=== PATIENT | female | born 1975 | race Caucasian/White ===

== ENCOUNTER 2018-10-19 19:05 | Emergency (ER) | payer OTHER ==
[2018-10-19 19:28] VITALS: TEMP 98.3; BMI 46.3
--- NOTE | 2018-10-19 19:44 | PDOC ---
History of Present Illness - General Chief Complaint: Pain Stated Complaint: PAIN AFTER DIALYSIS History Source: Patient - History of Present Illness Initial Comments: 10/19/18 19:45 The patient is a 42 year old female with a PMH of ESRD (on HD ) and HTN who was BIBA from HD with a one week h/o back pain. Pain is "aching" constant, localized to her lower back worse with ambulating or movement. No associated numbness/tingling, bowel or bladder incontinence. No known h/o trauma. No previous h/o similar pain. Patient completed entire HD session today. States she is currently being evaluated by her PMD for a thyroid issue and has been taking Motrin for her pain. Allergy: Tylenol (rash), Vancomycin Surgical: A-V Fistula PMD: Dr. Camejo Soil Surveyor: Dr. Hernandez Past History - Past Medical History Allergies/Adverse Reactions: Allergies Allergy/AdvReac Type Severity Reaction Status Date / Time vancomycin Allergy Rash Verified 10/19/18 19:26 Home Medications: Ambulatory Orders Enalapril Maleate [Vasotec -] 10 mg PO DAILY 10/19/18 Sevelamer HCl [Renagel] 800 mg PO TID 10/19/18 Lidocaine 5% Patch [Lidoderm -] 1 patch TP DAILY PRN #7 patch 10/20/18 COPD: No Dialysis: Yes () HTN: Yes - Suicide/Smoking/Psychosocial Hx Smoking History: Never smoked Hx Alcohol Use: No Drug/Substance Use Hx: No Substance Use Type: None Review of Systems - Review of Systems Constitutional: No: Chills, Fever Respiratory: No: Cough, Shortness of Breath Cardiac (ROS): No: Chest Pain, Lightheadedness, Palpitations, Syncope ABD/GI: No: Constipated, Diarrhea, Nausea, Vomiting, Abdominal cramping : No: Burning, Dysuria, Flank Pain, Incontinence Musculoskeletal: Yes: Back Pain Neurological: No: Headache, Numbness, Tingling, Ataxia, Dizziness *Physical Exam - Vital Signs Last Vital Signs Temp Pulse Resp BP Pulse Ox 98.3 F 83 18 137/90 100 10/19/18 19:25 10/19/18 19:25 10/19/18 19:25 10/19/18 19:25 10/19/18 19:25 - Physical Exam General Appearance: Yes: Nourished, Appropriately Dressed HEENT: positive: Normal Voice, Hearing Grossly Normal Neck: positive: Trachea midline, Supple Respiratory/Chest: positive: Lungs Clear, Normal Breath Sounds Cardiovascular: positive: S1, S2. negative: Murmur Vascular Pulses: Dorsalis-Pedis (R): 2+, Doralis-Pedis (L): 2+ Musculoskeletal: negative: CVA Tenderness (R), CVA Tenderness (L), Vertebral Tenderness Extremity: positive: Normal Capillary Refill, Normal Inspection, Normal Range of Motion Integumentary: positive: Normal Color, Dry, Warm Neurologic: positive: mail clerks supervisor II-XII NML intact, Fully Oriented, Alert, Motor Strength 5/5, Other (DTR intact, 5/5 strength) ED Treatment Course - LABORATORY CBC & Chemistry Diagram: 10/19/18 20:10 10/19/18 20:25 Medical Decision Making - Medical Decision Making 10/19/18 20:44 42 y/o female with 1 week h/o of worsening lower back pain. VS unremarkable. Midline lumbar spinal pain w/o TTP. Will obtain Lumbar Spine CT to evaluate for fracture,herniation Will give pain control with Lidoderm patch 10/19/18 22:[address] shows multiple lytic lesion in lumbar spine, ? malignancy 10/19/18 23:44 CT read as metabolic bone disease, severe osteopenia, notable for Schmorl's nodes @ T11, T12, T14 At this time, concern for malignancy/metastatic disease. Patient requires further evaluation including MRI. Patient given copy of CT and counseled on importance of follow-up care for further evaluation. Patient also counseled to avoid NSAID use given her renal compromise. *DC/Admit/Observation/Transfer Diagnosis at time of Disposition: Back pain - Discharge Dispostion Disposition: HOME Condition at time of disposition: Good Decision to Admit order: No - Prescriptions Prescriptions: Lidocaine 5% Patch [Lidoderm -] 1 patch TP DAILY PRN #7 patch PRN Reason: Back Pain - Referrals Referrals: Nicky Camejo [Primary Care Provider] - - Patient Instructions Printed Discharge Instructions: DI for Low Back Pain Additional Instructions: Debe hacer un seguimiento con el Dr. Camejo en los prximos 3 [place] para hany evaluacin adicional que incluya hany resonancia magntica. Lleve la copia de lainez tomografa computarizada con usted. Evite levantar objetos pesados ??o hacer esfuerzos hasta que el Dr. Camejo lo evale. Lainez atencin no est completa hasta que el Dr. Camejo lo evale y reciba hany evaluacin adicional de lainez dolor de espalda. Hemos enviado hany receta a lainez farmacia. Por favor, tome segn sea necesario para el dolor. Regrese de inmediato al Departamento de Emergencias para cualquier sntoma nuevo / que empeore / relacionado. You must follow-up with Dr. Camejo in the next 3 days for further evaluation including an MRI. Take the copy of your CT scan with you. Avoid any heavy lifting or exertion until evaluated by Dr. Camejo. Your care is not complete until you are evaluated by Dr. Camejo and receive further evaluation of your back pain. We have sent a prescription to your pharmacy. Please take as needed for pain. Return immediately to the Emergency Department for any new/worsening/concerning symptoms. - Post Discharge Activity
--- NOTE | 2018-10-19 20:01 | PDOC ---
Documentation entered by Juanito Miller SCRIBE, acting as scribe for Bennie Mcgovern MD. Bennie Mcgovern MD: This documentation has been prepared by the Paul pulido Elijah, SCRIBE, under my direction and personally reviewed by me in its entirety. I confirm that the documentation accurately reflects all work, treatment, procedures, and medical decision making performed by me. Attending Attestation - Resident Resident Name: Jaclyn Espinoza - ED Attending Attestation I have performed the following: I have examined & evaluated the patient, The case was reviewed & discussed with the resident, I agree w/resident's findings & plan - HPI HPI: 10/19/18 20:19 Patient is a 42 year old female with a significant past medical history of ESRD (Dialysis //Tue) and HTN who presents to the ED with a sharp Lower back pain that radiates down her leg lasting for about a week. The patient reports that the pain has limited her mobility, worsens positionally and while walking, and has needed help from family members to move around the house. Denies any numbness, tingling, weakness, no perineal anesthesia, no incontinence Allergies: Vancomycin PCP: Dr. Camejo 10/19/18 22:41 - Physicial Exam PE: 10/19/18 21:14 Agree with exam as documented by resident Only bony midline tenderness of lumbar spine, no palpable spasm No cvat tenderness KELLEY ZUNIGA - Medical Decision Making 10/19/18 21:15 42F here with about a week of persistent back px, no hx of trauma f/u labs, ua ct LS dispo per clinical course 10/20/18 00:56 CT with severe osteopenia, schmorl's nodes Px much improved with robaxin dc with follow up with pcp strict return instructions
[2018-10-19] MEDS ORDERED: METHOCARBAMOL 500 MG TABLET PO ONE (20:13)
[2018-10-19] MEDS ORDERED: METHOCARBAMOL 500 MG TABLET ONE (20:18)
[2018-10-19 20:27] LABS: BASO % 1.1 % (0-2.0); EOS % 1.6 % (0-4.5); HEMATOCRIT 34.1 % (32.4-45.2); HEMOGLOBIN 11.6 GM/dL (10.7-15.3); LYMPH % 16.9 % (8-40); MCH 30.8 pg (25.7-33.7); MCHC 33.9 g/dl (32.0-36.0); MEAN CELL VOLUME 90.8 fl (80-96); MEAN PLT VOLUME 9.5 fl (7.5-11.1); MONO % 5.7 % (3.8-10.2); NEUT % 74.7 % (42.8-82.8); PLATELET COUNT 184 K/MM3 (134-434); RBC 3.75 M/mm3 (3.60-5.2); RDW 16.2 % (11.6-15.6); WHITE BLOOD COUNT 9.1 K/mm3 (4.0-10.0)
[2018-10-19 20:50] LABS: PH,URINE >= 9.0 (5.0-8.0); URINE APPEARANCE CLOUDY; URINE BILIRUBIN NEGATIVE (NEGATIVE); URINE COLOR YELLOW; URINE GLUCOSE (UA) TRACE (NEGATIVE); URINE KETONE NEGATIVE (NEGATIVE); URINE LEUK ESTERASE 3+ (NEGATIVE); URINE NITRITE NEGATIVE (NEGATIVE); URINE PROTEIN 2+ (NEGATIVE); URINE UROBILINOGEN 0.2 mg/dL (0.2-1.0)
[2018-10-19 21:49] LABS: ALBUMIN 3.5 g/dl (3.4-5.0); BILIRUBIN,TOTAL 0.6 mg/dL (0.2-1); CREATININE 5.2 mg/dL (0.55-1.3); POTASSIUM 3.7 mmol/L (3.5-5.1); TOT PROT 6.9 g/dl (6.4-8.2)
[2018-10-19] MEDS ORDERED: LIDOCAINE PATCH REMOVAL MC SCH (22:00)
[2018-10-19 23:05] LABS: EPI CELLS 0-5 /HPF (0-5/HPF); HYALINE CASTS 0 /lpf (0-8); URINE BACTERIA FEW /hpf (NEGATIVE)
[2018-10-19 23:06] LABS: URINE RBC 0-3 /hpf (0-4)
[2018-10-19 23:34] VITALS: BP 134/94; PULSE 88
[2018-10-19] MEDS ORDERED: LIDOCAINE 5% TOPICAL PATCH TP ONE (23:43)
[2018-10-19] MEDS ORDERED: LIDOCAINE 5% TOPICAL PATCH ONE (23:46)
--- NOTE | 2018-10-20 12:01 | EKG ---
Test Reason : Blood Pressure : / mmHG Vent. Rate : 084 BPM Atrial Rate : 084 BPM P-R Int : 122 ms QRS Dur : 090 ms QT Int : 404 ms P-R-T Axes : 036 016 030 degrees QTc Int : 477 ms NORMAL SINUS RHYTHM MINIMAL VOLTAGE CRITERIA FOR LVH, MAY BE NORMAL VARIANT CANNOT RULE OUT INFERIOR INFARCT , AGE UNDETERMINED NO PREVIOUS ECGS AVAILABLE Confirmed by MICHELLE GUARDADO MD ([id number]) on 10/20/2018 12:01:10 PM Referred By: Confirmed By:MICHELLE GUARDADO MD
== END 2018-10-20 00:19 | disposition home or self-care (01) ==
LOC: JER 19:05
DX: M54.5 Low back pain (principal); I12.0 Hypertensive chronic kidney disease with stage 5 chronic kidney disease or end stage renal disease; N18.6 End stage renal disease; Z99.2 Dependence on renal dialysis
CPT/HCPCS: 36415; 72131-TC; 80053; 81003; 84703; 85025; 93005; 93010; 99282-25